=== PATIENT | female | born 1955 | race Caucasian/White ===

== ENCOUNTER → 2017-01-02 | Outpatient (CLI) | payer OTHER ==
--- NOTE | 2017-01-02 13:19 | WOMENS IMAGING REPORT ---
EXAM DESCRIPTION: BILAT SCREENING MAMMO W/CAD COMPLETED DATE/TIME: 01/02/2017 12:59 pm REASON FOR STUDY: Z12.31, ROUTINE SCREENING MAMMO (IMPLANTS) Z12.31 ENCNTR SCREEN MAMMOGRAM FOR MAL IGNANT NEOPLASM OF HUE COMPARISON: November 2015 and September 2014 TECHNIQUE: Standard craniocaudal and mediolateral oblique views of each breast recorded using digita l acquisition. Additional "push-back" craniocaudal and mediolateral oblique images acquired. LIMITATIONS: None. FINDINGS: IMPLANTS: Bilateral subglandular implants are again identified. The previously described bilateral silicone extravasation is again identified and appears unchanged. Findings present which are benign by mammographic criteria. No suspicious masses, calcifications or architectural distortion. Read with the assistance of CAD. .[facility] - R2 Cenova Version 1.3 .[facility] - R2 Cenova Version 1.3 .[facility] - R2 Cenova Version 2.4 .[facility] - R2 Cenova Version 2.4 .[facility] - R2 [employer] Version 9.2 Benign mammographic findings may include one or more of the following: Smooth masses, popcorn/rim/co arse calcifications, asymmetries, post-procedure changes, and lesions with long-standing stability. IMPRESSION: BENIGN MAMMOGRAPHIC FINDINGS. BIRADS 2 BREAST DENSITY: c. The breasts are heterogeneously dense, which may obscure small masses. BIRAD: 2 BENIGN FINDING(S) RECOMMENDATION: ROUTINE SCREENING COMMENT: The patient has been notified of the results by letter per SA requirements. Additional no tification policies are in place for contacting patient with suspicious or incomplete findings. Quality ID #[id number]: The [employer] recommends an annual screening mammogram for women aged 40 years or over. This facility utilizes a reminder system to ensure that all patients receive reminder letters, and/or direct phone calls for appointments. This includes reminders for routine scr eening mammograms, diagnostic mammograms, or other Breast Imaging Interventions when appropriate. Th is patient will be placed in the appropriate reminder system. The [employer] (ACR) has developed recommendations for screening MRI of the breast s in certain patient populations, to be used in conjunction with mammography. Breast MRI surveillanc e may be appropriate for women with more than 20% lifetime risk of developing breast cancer as deter mined by genetic testing, significant family history of the disease, or history of mantle radiation f or Hodgkins Disease. ACR Practice Guidelines 2008. TECHNICAL DOCUMENTATION: FINDING NUMBER: (1) ASSESSMENT: (1) JOB ID: [id number] [employer]- All Rights Reserved
== END ==
LOC: WI 12:36
PROVIDERS: ATTEND Nurse Practitioner
DX: Z12.31 Encounter for screening mammogram for malignant neoplasm of breast (principal)
CPT/HCPCS: 77067; G0202

== ENCOUNTER 2017-01-29 08:59 | Inpatient (IN) | payer OTHER ==
[2017-01-29] MEDS ORDERED: ONDANSETRON HCL INJ/PF 4 MG/2 ML SDV IV ONE (09:28)
[2017-01-29] MEDS ORDERED: NORMAL SALINE 1000 ML 1,000 ML IV ONE (09:40)
[2017-01-29] MEDS ORDERED: KETOROLAC TROMETHAMINE INJ/PF 30 MG/1 ML SDV IV ONE (09:40)
[2017-01-29 10:05] LABS: ABSOLUTE LYMPHOCYTES (AUTO) 0.7 10^3/uL (0.5-4.7); ABSOLUTE MONOCYTES (AUTO) 0.4 10^3/uL (0.1-1.4); ABSOLUTE NEUT (AUTO) 7.3 10^3/uL (1.7-8.2); BASOPHILS % (AUTO) 0.3 % (0-2); HEMATOCRIT 22.3 % (36.0-47.0); HGB HCT DIFFERENCE -0.4; LYMPHOCYTES % (AUTO) 8.7 % (13-45); MEAN CORPUSCULAR HEMOGLOBIN 32.4 pg (27.0-33.4); MEAN CORPUSCULAR HGB CONC 32.8 g/dL (32.0-36.0); MEAN CORPUSCULAR VOLUME 99 fl (80-97); RED BLOOD COUNT 2.26 10^6/uL (3.72-5.28); RED CELL DISTRIBUTION WIDTH 13.6 % (11.5-14.0); WHITE BLOOD COUNT 8.5 10^3/uL (4.0-10.5)
[2017-01-29 10:07] LABS: HEMOGLOBIN 7.3 g/dL (12.0-15.5)
[2017-01-29 10:15] LABS: ALANINE AMINOTRANSFERASE 21 U/L (9-52); ALBUMIN 3.9 g/dL (3.5-5.0); ALKALINE PHOSPHATASE 36 U/L (38-126); ANION GAP 11 (5-19); ASPARTATE AMINO TRANSFERASE 23 U/L (14-36); BILIRUBIN,DIRECT 0.2 mg/dL (0.0-0.4); BILIRUBIN,TOTAL 0.4 mg/dL (0.2-1.3); BLOOD UREA NITROGEN 28 mg/dL (7-20); CALCIUM 8.6 mg/dL (8.4-10.2); CARBON DIOXIDE 23 mmol/L (22-30); CHLORIDE 94 mmol/L (98-107); CREATININE RESULT 0.87 mg/dL (0.52-1.25); GLUCOSE 117 mg/dL (75-110); SODIUM 127.8 mmol/L (137-145); TOTAL PROTEIN 6.2 g/dL (6.3-8.2)
--- NOTE | 2017-01-29 10:47 | RADIOLOGY REPORT (SQ) ---
EXAM DESCRIPTION: ACUTE ABDOMEN SERIES COMPLETED DATE/TIME: 01/29/2017 10:23 am REASON FOR STUDY: abd pain nvd COMPARISON: None. NUMBER OF VIEWS: Three views. TECHNIQUE: Frontal chest, supine abdomen and upright/decubitus abdomen radiographic images acquired. LIMITATIONS: None. FINDINGS: CHEST: Lungs clear of infiltrates. FREE AIR: None. No abnormal gas collections. BOWEL GAS PATTERN: Multiple air filled non distended bowel loops are identified most consistent with an ileus pattern. CALCIFICATIONS: No suspicious calcifications. HARDWARE: None in the abdomen. SOFT TISSUES: No gross mass or suggestion of organomegaly. BONES: No acute fracture. No worrisome bone lesions. OTHER: No other significant finding. IMPRESSION: NO RADIOGRAPHIC EVIDENCE FOR ACUTE ABDOMINAL DISEASE. TECHNICAL DOCUMENTATION: JOB ID: [id number] [email or web address]- All Rights Reserved
[2017-01-29] MEDS ORDERED: PANTOPRAZOLE SODIUM 40 MG VIAL IV ONE (11:36)
[2017-01-29 11:48] LABS: PROTHROMBIN TIME 14.2 SEC (11.4-15.4)
[2017-01-29 11:49] LABS: PARTIAL THROMBOPLASTIN TIME 27.4 SEC (23.5-35.8)
[2017-01-29 11:57] LABS: APPEARANCE,URINE CLEAR; BILIRUBIN,URINE NEGATIVE (NEGATIVE); GLUCOSE, URINE NEGATIVE (NEGATIVE); KETONES,URINE NEGATIVE (NEGATIVE); LEUKOCYTE ESTERASE,URINE NEGATIVE (NEGATIVE); NITRITE,URINE NEGATIVE (NEGATIVE); PROTEIN,URINE NEGATIVE (NEGATIVE); UROBILINOGEN,URINE NEGATIVE mg/dL (<2.0)
[2017-01-29 11:59] LABS: URINE SPECIFIC GRAVITY 1.009
--- NOTE | 2017-01-29 12:08 | ER Document Report ---
ED General - General Chief Complaint: Vomiting Stated Complaint: VOMITING Time Seen by Provider: 01/29/17 09:38 TRAVEL OUTSIDE OF THE [place] IN LAST 30 DAYS: No - HPI Patient complains to provider of: Nausea vomiting diarrhea Notes: Patient coming in complaining of nausea vomiting diarrhea with palpable stool initially now black stools. Patient states she takes multiple BC powders a day. Patient denies any past medical history except for hypertension denies any blood thinning medication. Patient states diffuse abdominal pain no localized symptoms ongoing for a week. Denies any recent travel antibiotics denies any sick contacts - Related Data Allergies/Adverse Reactions: No Known Allergies Allergy (Verified 01/29/17 09:02) Home Medications: Current Home Medications Amlodipine Besylate 5 mg PO DAILY 01/29/17 [History] Citalopram Hydrobromide [Celexa 40 mg Tablet] 40 mg PO DAILY 01/29/17 [History] Lisinopril 40 mg PO DAILY 01/29/17 [History] Past Medical History - Social History Smoking Status: Current Some Day Smoker Chew tobacco use (# tins/day): No Frequency of alcohol use: Occasional Drug Abuse: None Family History: Arthritis, DM, Hyperlipidemia, Hypertension, Malignancy Patient has suicidal ideation: No Patient has homicidal ideation: No - Past Medical History Cardiac Medical History: Reports: Hx Hypertension Renal/ Medical History: Denies: Hx Peritoneal Dialysis Musculoskeltal Medical History: Reports Hx Arthritis, Reports Hx Musculoskeletal Trauma Past Surgical History: Reports: Hx Orthopedic Surgery - neck, Hx Tubal Ligation - Immunizations Hx Diphtheria, Pertussis, Tetanus Vaccination: Yes Review of Systems - Review of Systems Constitutional: No symptoms reported EENT: No symptoms reported Cardiovascular: No symptoms reported Respiratory: No symptoms reported Gastrointestinal: Abdominal pain, Nausea, Vomiting, Black stools Genitourinary: No symptoms reported Female Genitourinary: No symptoms reported Musculoskeletal: No symptoms reported Skin: No symptoms reported Hematologic/Lymphatic: No symptoms reported Neurological/Psychological: No symptoms reported -: Yes All other systems reviewed and negative Physical Exam - Vital signs Vitals: Temp Pulse Resp BP Pulse Ox 97.4 F 87 14 108/63 100 01/29/17 09:02 01/29/17 09:02 01/29/17 09:02 01/29/17 09:02 01/29/17 09:02 Interpretation: Normal - General General appearance: Appears well, Alert - HEENT Head: Normocephalic, Atraumatic Eyes: Normal Pupils: PERRL - Respiratory Respiratory status: No respiratory distress Chest status: Nontender Breath sounds: Normal Chest palpation: Normal - Cardiovascular Rhythm: Regular Heart sounds: Normal auscultation Murmur: No - Abdominal Inspection: Normal Distension: No distension Bowel sounds: Normal Tenderness: Nontender Organomegaly: No organomegaly - Rectal Tenderness: Yes Stool: Heme positive, Bloody Hemorrhoids: External - Back Back: Normal, Nontender - Extremities General upper extremity: Normal inspection, Nontender, Normal color, Normal ROM , Normal temperature General lower extremity: Normal inspection, Nontender, Normal color, Normal ROM , Normal temperature, Normal weight bearing. No: Rodriguez's sign - Neurological Neuro grossly intact: Yes Cognition: Normal Orientation: AAOx4 [place] Coma Scale Eye Opening: Spontaneous [place] Coma Scale Verbal: Oriented Tony Coma Scale Motor: Obeys Commands [place] Coma Scale Total: 15 Speech: Normal Motor strength normal: LUE, RUE, LLE, RLE Sensory: Normal - Psychological Associated symptoms: Normal affect, Normal mood - Skin Skin Temperature: Warm Skin Moisture: Dry Skin Color: Normal Course - Re-evaluation Re-evalutation: 01/29/17 16:09 Patient's hemoglobin returned low patient's Hemoccult was positive lactic acid negative acute abdominal series negative. Discussed with hospitalist will admit the patient for GI bleed. Protonix was ordered for the patient. - Vital Signs Vital signs: Temp Pulse Resp BP Pulse Ox 98 F 97 17 116/66 99 01/29/17 11:52 01/29/17 15:01 01/29/17 11:52 01/29/17 11:52 01/29/17 11:52 - Laboratory Result Diagrams: 01/29/17 09:35 01/29/17 09:35 Laboratory results interpreted by me: 01/29/17 01/29/17 01/29/17 09:35 09:35 11:40 RBC 2.26 L Hgb 7.3 L Hct 22.3 L MCV 99 H Seg Neutrophils % 86.0 H Lymphocytes % 8.7 L Sodium 127.8 L Chloride 94 L BUN 28 H Glucose 117 H Alkaline Phosphatase 36 L Total Protein 6.2 L Urine Blood SMALL H Critical Care Note - Critical Care Note Total time excluding time spent on procedures (mins): 35 Comments: Multiple evaluations for GI bleed Discharge - Discharge Clinical Impression: Nausea vomiting and diarrhea GI bleeding Qualifiers: GI bleed type/associated pathology: melena Qualified Code(s): K92.1 - Melena Condition: Good Disposition: HOME, SELF-CARE Admitting Provider: Hospitalist - [facility] Unit Admitted: Telemetry
[2017-01-29] MEDS ORDERED: ONDANSETRON HCL INJ/PF 4 MG/2 ML SDV IV PRN (12:11)
[2017-01-29] MEDS ORDERED: NORMAL SALINE 1000 ML 1,000 ML IV PRN (12:11)
[2017-01-29] MEDS ORDERED: ACETAMINOPHEN 325 MG TABLET PO PRN (12:11)
--- NOTE | 2017-01-29 13:15 | PDOC H&P ---
History of Present Illness Admission Date/PCP: 01/29/17 12:30 WALE BOLAÑOS MD Patient complains of: Nausea, vomiting and diarrhea for the last 3 days History of Present Illness: Beatrice Oneill is a 61 year old female, with past medical history of hypertension and depression; presents to [facility] emergency room this morning with complaints of nausea, vomiting and diarrhea for the last 3 days. Patient states her symptoms began on the evening of January 27 when she vomited dark brown emesis. She also shortly thereafter, and burgundy colored stool which were liquid. She has had no further vomiting since that time. She does complain of mild epigastric discomfort. She states her diarrhea continued and is now more black in color. She has had no prior history of GI bleeding or peptic ulcer disease. She states she has had EGD which was unremarkable several years ago. She also underwent colonoscopy 6 or 7 years ago and had 2 polyps removed. She has had no change in bowel habits prior to this episode. Patient states she does use frequent BC powder, or headaches and various joint discomforts. Patient denies any excessive alcohol intake. She is a daily smoker. She presently smokes approximately half pack per day. She denies any lightheadedness or dizziness while standing. Past Medical History Cardiac Medical History: Reports: Hypertension Pulmonary Medical History: Reports: None EENT Medical History: Reports: None Neurological Medical History: Reports: None Endocrine Medical History: Reports: None Renal/ Medical History: Reports: None Malignancy Medical History: Reports: None GI Medical History: Reports: None Musculoskeltal Medical History: Reports: Arthritis Skin Medical History: Reports: None Psychiatric Medical History: Reports: Tobacco Dependency Traumatic Medical History: Reports: None Hematology: Reports: None - All Infectious Medical History: Reports: None Past Surgical History Past Surgical History: Reports: Orthopedic Surgery - neck, Tubal Ligation Social History Information Source: Patient Lives with: Spouse/Significant other Smoking Status: Current Some Day Smoker Cigarettes Packs Per Day: 0.5 Number of Years Smokin Last Time Smoked: Today Frequency of Alcohol Use: Occasional Hx Recreational Drug Use: No Hx Prescription Drug Abuse: No - Advance Directive Resuscitation Status: Full Code Family History Family History: Arthritis, DM, Hyperlipidemia, Hypertension, Malignancy Parental Family History Reviewed: Yes Children Family History Reviewed: Yes Sibling(s) Family History Reviewed.: Yes Medication/Allergy Home Medications: Amlodipine Besylate 5 mg PO DAILY 01/29/17 Citalopram Hydrobromide [Celexa 40 mg Tablet] 1 tab PO DAILY 01/29/17 Lisinopril 20 mg PO DAILY 01/29/17 Allergies/Adverse Reactions: No Known Allergies Allergy (Verified 01/29/17 09:02) Review of Systems Constitutional: PRESENT: anorexia, headache(s), weakness Eyes: ABSENT: visual disturbances Ears: ABSENT: hearing changes Cardiovascular: ABSENT: chest pain, dyspnea on exertion, edema, orthropnea, palpitations Gastrointestinal: PRESENT: abdominal pain, diarrhea, melena, other Genitourinary: ABSENT: dysuria, hematuria Musculoskeletal: ABSENT: joint swelling Integumentary: ABSENT: rash, wounds Neurological: ABSENT: abnormal gait, abnormal speech, confusion, dizziness, focal weakness, syncope Hematologic/Lymphatic: ABSENT: easy bleeding, easy bruising Physical Exam Vital Signs: Temp Pulse Resp BP Pulse Ox 98 F 91 17 116/66 99 01/29/17 11:52 01/29/17 11:52 01/29/17 11:52 01/29/17 11:52 01/29/17 11:52 General appearance: PRESENT: no acute distress, thin, well-developed, well- nourished Head exam: PRESENT: atraumatic, normocephalic Eye exam: PRESENT: conjunctiva pale Ear exam: PRESENT: normal external ear exam Mouth exam: PRESENT: moist, neck supple, tongue midline Neck exam: ABSENT: carotid bruit, JVD, lymphadenopathy, thyromegaly Respiratory exam: PRESENT: clear to auscultation devin. ABSENT: rales, rhonchi, wheezes Cardiovascular exam: PRESENT: RRR. ABSENT: diastolic murmur, rubs, systolic murmur Pulses: PRESENT: normal carotid pulses, normal radial pulses Vascular exam: PRESENT: normal capillary refill GI/Abdominal exam: PRESENT: normal bowel sounds, soft. ABSENT: distended, guarding, mass, organolmegaly, rebound, tenderness Rectal exam: PRESENT: black stool, heme (+) stool Extremities exam: PRESENT: full ROM. ABSENT: calf tenderness, clubbing, pedal edema Musculoskeletal exam: PRESENT: ambulatory, full ROM, normal inspection Neurological exam: PRESENT: alert, awake, oriented to person, oriented to place , oriented to time, oriented to situation, CN II-XII grossly intact. ABSENT: motor sensory deficit Psychiatric exam: PRESENT: appropriate affect, normal mood. ABSENT: homicidal ideation, suicidal ideation Skin exam: PRESENT: dry, intact, warm. ABSENT: cyanosis, rash Results Impressions: Acute Abdomen Series 01/29/17 09:40 IMPRESSION: NO RADIOGRAPHIC EVIDENCE FOR ACUTE ABDOMINAL DISEASE. Assessment & Plan - Diagnosis (1) GI bleeding Qualifiers: GI bleed type/associated pathology: melena Qualified Code(s): K92.1 - Melena Is this a current diagnosis for this admission?: YesPlan: NPO. IV Protonix and GI consult. Serial CBCs will be obtained. Transfuse if hgb <7.0 (2) Nausea vomiting and diarrhea Is this a current diagnosis for this admission?: YesPlan: PRN nausea and vomiting (3) Essential hypertension Is this a current diagnosis for this admission?: YesPlan: Continue antihypertensives (4) Depression Qualifiers: Depression Type: unspecified Qualified Code(s): F32.9 - Major depressive disorder, single episode, unspecified Is this a current diagnosis for this admission?: YesPlan: Continue SSRI (5) Tobacco abuse Is this a current diagnosis for this admission?: YesPlan: Counseled. Patient is contemplating quitting. Nicotine prn - Time Time Spent: 50 to 70 Minutes Critical Time spent with patient: 25-34 minutes Medications reviewed and adjusted accordingly: Yes Anticipated discharge: Home with Homehealth Within: within 48 hours
[2017-01-29] MEDS ORDERED: ALPRAZOLAM 0.5 MG TABLET PO PRN (15:59)
[2017-01-29] MEDS ORDERED: NORMAL SALINE 250 ML IV PRN (16:01)
[2017-01-29] MEDS ORDERED: NALOXONE HCL INJ/PF 0.4 MG/1 ML SDV ONE (16:56)
[2017-01-29] MEDS ORDERED: ONDANSETRON HCL INJ/PF 4 MG/2 ML SDV ONE (16:57)
[2017-01-29] MEDS ORDERED: FLUMAZENIL INJ 0.5 MG/5 ML VIAL IV ONE (16:57)
[2017-01-29] MEDS ORDERED: GLUCAGON,HUMAN RECOMB 1 MG INJ ONE (16:57)
[2017-01-29] MEDS ORDERED: EPINEPHRINE INJ 1 MG/10 ML DISP.SYRIN ONE (16:57)
[2017-01-29] MEDS ORDERED: NICOTINE 21 MG/24 HR PATCH.TD24 TD ONE (17:00)
[2017-01-29] MEDS: MIDAZOLAM 2 MG/2 ML INJ ONE ×2 (20:19→20:26)
[2017-01-29] MEDS: FENTANYL CITRATE INJ/PF 100 MCG/2 ML AMPUL ONE ×2 (20:21→20:36)
--- NOTE | 2017-01-29 20:52 | PDOC CONSULTATION ---
Consultation Consult Date: 01/29/17 History of Present Illness Admission Date/PCP: 01/29/17 12:12 WAEL BOLAÑOS MD History of Present Illness: This is a 61-year-old patient who was admitted early on today with vomiting, diarrhea, dizziness and purple looking stools. She had about 4 episodes of this type of stools before admission. She has also been feeling dizzy and lightheaded. She did have some mild epigastric discomfort. She takes BC powder every day and has done this for years. Admission hemoglobin was 7.3. She was told in the past that she was anemic Past Medical History Cardiac Medical History: Reports: Hypertension Pulmonary Medical History: Reports: None EENT Medical History: Reports: None Neurological Medical History: Reports: None Endocrine Medical History: Reports: None Renal/ Medical History: Reports: None Malignancy Medical History: Reports: None GI Medical History: Reports: None Musculoskeltal Medical History: Reports: Arthritis Skin Medical History: Reports: None Psychiatric Medical History: Reports: Depression, Tobacco Dependency Traumatic Medical History: Reports: None Hematology: Reports: None - All Infectious Medical History: Reports: None Past Surgical History Past Surgical History: Reports: Orthopedic Surgery - neck, Tubal Ligation Social History Lives with: Spouse/Significant other Smoking Status: Current Some Day Smoker Cigarettes Packs Per Day: 0.5 Number of Years Smokin Last Time Smoked: Today Frequency of Alcohol Use: Social Hx Recreational Drug Use: No Drugs: None Hx Prescription Drug Abuse: No - Advance Directive Resuscitation Status: Full Code Family History Family History: Arthritis, DM, Hyperlipidemia, Hypertension, Malignancy Parental Family History Reviewed: No Children Family History Reviewed: NA Sibling(s) Family History Reviewed.: NA Medication/Allergy Home Medications: Amlodipine Besylate 5 mg PO DAILY 01/29/17 Citalopram Hydrobromide [Celexa 40 mg Tablet] 40 mg PO DAILY 01/29/17 Lisinopril 40 mg PO DAILY 01/29/17 Allergies/Adverse Reactions: No Known Allergies Allergy (Verified 01/29/17 09:02) Review of Systems All systems: reviewed and no additional remarkable complaints except as stated Physical Exam Vital Signs: Temp Pulse Resp BP Pulse Ox 97.9 F 97 18 151/78 H 97 01/29/17 18:59 01/29/17 20:40 01/29/17 20:40 01/29/17 20:40 01/29/17 20:40 Intake & Output 01/28/17 01/29/17 01/30/17 06:59 06:59 06:59 Intake Total 604 Balance 604 Exam: General: Patient is alert and looks well. HEENT: There is pallor but no jaundice. PERRLA. Oropharynx normal Respiratory: No chest deformity. No respiratory distress. Chest wall palpitation was unremarkable. Breath sounds were normal Cardiovascular: Heart sounds 1 and 2 normal with no murmurs. Abdominal: Not distended. Soft and nontender. Liver and spleen not palpable. No ascites demonstrated. Bowel sounds active. Rectal examination was deferred. Extremities: No edema Neurological: Alert and oriented x4. Grossly nonfocal. Normal speech Skin: No significant rash Psychological: Normal affect Results Laboratory Results: 01/29/17 12:35 Blood Type B POSITIVE Antibody Screen NEGATIVE Impressions: Acute Abdomen Series 01/29/17 09:40 IMPRESSION: NO RADIOGRAPHIC EVIDENCE FOR ACUTE ABDOMINAL DISEASE. Assessment & Plan - Diagnosis (1) GI bleeding Qualifiers: GI bleed type/associated pathology: melena Qualified Code(s): K92.1 - Melena Is this a current diagnosis for this admission?: YesPlan: Her symptoms does suggest GI bleed with a hemoglobin of 7. She was transfused 1 unit of blood. She may have a chronic anemia also. She takes aspirin every day. She will undergo an EGD and if this is unremarkable a colonoscopy (2) GI bleed due to NSAIDs Is this a current diagnosis for this admission?: Yes (3) Tobacco abuse Is this a current diagnosis for this admission?: Yes
[2017-01-29] MEDS ORDERED: NORMAL SALINE 100 ML with PANTOPRAZOLE SODIUM 80 MG IV PRN ×2 (20:55)
--- NOTE | 2017-01-29 20:55 | Operative Report ---
Operative Report DATE OF SURGERY: 01/29/17 Operative Report: Pre-op diagnosis: Anemia and GI bleed Post-op diagnosis: 1. Duodenal ulcer with visible vessel 2. Antral ulcers Surgery: Esophagogastroduodenoscopy with epinephrine injection, cauterization, and biopsy Medications: Versed 4mg Fentanyl 150mcg IV push Tissue removed: Antral biopsy for pathology Procedure: After informed consent obtained from patient, the throat was sprayed with Hurricane and conscious sedation was achieved. The upper endoscope was inserted into the esophagus under direct vision and advanced into the stomach. The duodenum was entered and examined to the second part. Endoscope was then slowly pulled out of the patient as the mucosa was examined into details. Patient tolerated procedure well. Findings Esophagus: Normal Z-line at: 38 cm Antrum: Areas of erythema and 2 small ulcers. Body: Normal Fundus: Normal Duodenum first part: 1 cm ulcer noted with a visible vessel. The base was injected with epinephrine 1 in 10,000 and cauterized. Duodenum second part: Normal Plan: Await pathology. Resume pantoprazole infusion and repeat EGD in 6-8 weeks. Patient was advised to avoid aspirin use OPERATION: .
[2017-01-29] MEDS ORDERED: PANTOPRAZOLE SODIUM 40 MG VIAL IV SCH (22:00)
[2017-01-29] MEDS ORDERED: PANTOPRAZOLE SODIUM 80 MG in NORMAL SALINE 100 ML IV ONE (22:00)
[2017-01-30 06:10] LABS: ANION GAP 6 (5-19); BLOOD UREA NITROGEN 17 mg/dL (7-20); CALCIUM 8.2 mg/dL (8.4-10.2); CARBON DIOXIDE 22 mmol/L (22-30); CHLORIDE 108 mmol/L (98-107); CREATININE RESULT 0.64 mg/dL (0.52-1.25); GLUCOSE 82 mg/dL (75-110); MAGNESIUM 1.8 mg/dL (1.6-2.3); POTASSIUM 4.6 mmol/L (3.6-5.0); SODIUM 135.7 mmol/L (137-145)
[2017-01-30 07:01] LABS: ABSOLUTE LYMPHOCYTES (AUTO) 1.7 10^3/uL (0.5-4.7); ABSOLUTE MONOCYTES (AUTO) 0.4 10^3/uL (0.1-1.4); ABSOLUTE NEUT (AUTO) 4.3 10^3/uL (1.7-8.2); BASOPHILS % (AUTO) 0.3 % (0-2); EOSINOPHILS % (AUTO) 0.2 % (0-6); HEMATOCRIT 20.7 % (36.0-47.0); HGB HCT DIFFERENCE 0.3; LYMPHOCYTES % (AUTO) 26.8 % (13-45); MEAN CORPUSCULAR HEMOGLOBIN 31.9 pg (27.0-33.4); MEAN CORPUSCULAR HGB CONC 33.7 g/dL (32.0-36.0); MONOCYTES % (AUTO) 6.2 % (3-13); RED BLOOD COUNT 2.19 10^6/uL (3.72-5.28); RED CELL DISTRIBUTION WIDTH 15.4 % (11.5-14.0); SEGMENTED NEUTROPHILS % (AUTO) 66.5 % (42-78); WHITE BLOOD COUNT 6.5 10^3/uL (4.0-10.5)
[2017-01-30 07:12] LABS: MEAN CORPUSCULAR VOLUME 95 fl (80-97)
[2017-01-30] MEDS ORDERED: NORMAL SALINE 250 ML IV PRN ×2 (07:37)
[2017-01-30] MEDS ORDERED: NICOTINE 21 MG/24 HR PATCH.TD24 TD SCH (10:00)
--- NOTE | 2017-01-30 16:15 | PDOC PROGRESS REPORT ---
Subjective Progress Note for:: 01/30/17 Subjective:: The patient is seen on morning rounds. She is sitting in bedside chair. She was found to have active bleeding gastric ulcer She underwent EGD last evening by Dr. Ford., 2 smaller healed ulcers. The active ulcer was injected she has had no further bleeding since that time. She denies any melena overnight. Hemoglobin was found to be 7 (she was transfused 1 unit packed red blood cells last night), she has 2 more units ordered at the present time. She denies any shortness of breath, chest pain or dyspnea. She denies any nausea, abdominal pain or diarrhea. She denies any further melena. She denies any significant joint pain. Physical Exam Vital Signs: Temp Pulse Resp BP Pulse Ox 98.1 F 93 16 125/70 96 01/30/17 15:05 01/30/17 15:05 01/30/17 15:05 01/30/17 15:05 01/30/17 15:05 Intake & Output 01/29/17 01/30/17 01/31/17 06:59 06:59 06:59 Intake Total 2329 0 Balance 2329 0 Weight 44.8 kg General appearance: PRESENT: no acute distress, thin, well-developed Head exam: PRESENT: atraumatic, normocephalic Eye exam: PRESENT: conjunctiva pale, EOMI, PERRLA. ABSENT: scleral icterus Ear exam: PRESENT: normal external ear exam Mouth exam: PRESENT: moist, tongue midline Neck exam: ABSENT: carotid bruit, JVD, lymphadenopathy, thyromegaly Respiratory exam: PRESENT: clear to auscultation devin. ABSENT: rales, rhonchi, wheezes Cardiovascular exam: PRESENT: RRR. ABSENT: diastolic murmur, rubs, systolic murmur Pulses: PRESENT: normal dorsalis pedis pul Vascular exam: PRESENT: normal capillary refill GI/Abdominal exam: PRESENT: normal bowel sounds, soft. ABSENT: distended, guarding, mass, organolmegaly, rebound, tenderness Rectal exam: PRESENT: deferred Extremities exam: PRESENT: full ROM. ABSENT: calf tenderness, clubbing, pedal edema Neurological exam: PRESENT: alert, awake, oriented to person, oriented to place , oriented to time, oriented to situation, CN II-XII grossly intact. ABSENT: motor sensory deficit Psychiatric exam: PRESENT: appropriate affect, normal mood. ABSENT: homicidal ideation, suicidal ideation Skin exam: PRESENT: dry, intact, warm. ABSENT: cyanosis, rash Results Laboratory Results: 01/30/17 04:40 01/30/17 04:40 01/29/17 01/30/17 01/30/17 12:35 04:40 04:40 WBC 6.5 RBC 2.19 L Hgb 7.0 L Hct 20.7 L MCV 95 D MCH 31.9 MCHC 33.7 RDW 15.4 H Plt Count 195 Seg Neutrophils % 66.5 Lymphocytes % 26.8 Monocytes % 6.2 Eosinophils % 0.2 Basophils % 0.3 Absolute Neutrophils 4.3 Absolute Lymphocytes 1.7 Absolute Monocytes 0.4 Absolute Eosinophils 0.0 Absolute Basophils 0.0 Sodium 135.7 L Potassium 4.6 Chloride 108 H Carbon Dioxide 22 Anion Gap 6 BUN 17 Creatinine 0.64 Est GFR ( Amer) > 60 Est GFR (Non-Af Amer) > 60 Glucose 82 Calcium 8.2 L Magnesium 1.8 Blood Type B POSITIVE Antibody Screen NEGATIVE Impressions: Acute Abdomen Series 01/29/17 09:40 IMPRESSION: NO RADIOGRAPHIC EVIDENCE FOR ACUTE ABDOMINAL DISEASE. Assessment & Plan - Diagnosis (1) Hyponatremia Is this a current diagnosis for this admission?: Yes (2) GI bleeding Qualifiers: GI bleed type/associated pathology: melena Qualified Code(s): K92.1 - Melena Is this a current diagnosis for this admission?: YesPlan: patient underwent EGD last evening by Dr. Ford. She was found to have 1 active gastric ulcer which was injected. She has had no further bleeding since that time. Discussed with patient most likely due to her overuse of BC powder. We also discussed the possibility of H pylori infection. Patient understands she needs to not use any aspirin products for several months. We will transfuse her 2 units packed cells morning. We will start her on clear liquid diet advance as tolerated (3) Nausea vomiting and diarrhea Is this a current diagnosis for this admission?: YesPlan: PRN nausea and vomiting (4) Essential hypertension Is this a current diagnosis for this admission?: YesPlan: Continue antihypertensives (5) Depression Qualifiers: Depression Type: unspecified Qualified Code(s): F32.9 - Major depressive disorder, single episode, unspecified Is this a current diagnosis for this admission?: YesPlan: Continue SSRI (6) Tobacco abuse Is this a current diagnosis for this admission?: YesPlan: Counseled. Patient is contemplating quitting. Nicotine prn - Time Time Spent with patient: 25-34 minutes Critical Time spent with patient: 15-24 minutes Medications reviewed and adjusted accordingly: Yes Anticipated discharge: Home - Inpatient Certification Based on my medical assessment, after consideration of the patient's comorbidities, presenting symptoms, or acuity I expect that the services needed warrant INPATIENT care.: Yes I certify that my determination is in accordance with my understanding of Medicare's requirements for reasonable and necessary INPATIENT services [42 CFR 412.3e].: Yes
[2017-01-30 18:10] LABS: ABSOLUTE BASOPHILS # (AUTO) 0.1 10^3/uL (0.0-0.2); ABSOLUTE MONOCYTES (AUTO) 0.6 10^3/uL (0.1-1.4); ABSOLUTE NEUT (AUTO) 4.7 10^3/uL (1.7-8.2); BASOPHILS % (AUTO) 0.8 % (0-2); EOSINOPHILS % (AUTO) 0.5 % (0-6); HEMATOCRIT 28.8 % (36.0-47.0); LYMPHOCYTES % (AUTO) 27.1 % (13-45); MEAN CORPUSCULAR HEMOGLOBIN 30.8 pg (27.0-33.4); MEAN CORPUSCULAR HGB CONC 33.4 g/dL (32.0-36.0); MEAN CORPUSCULAR VOLUME 92 fl (80-97); MONOCYTES % (AUTO) 8.3 % (3-13); RED BLOOD COUNT 3.12 10^6/uL (3.72-5.28); RED CELL DISTRIBUTION WIDTH 16.1 % (11.5-14.0); SEGMENTED NEUTROPHILS % (AUTO) 63.3 % (42-78); WHITE BLOOD COUNT 7.5 10^3/uL (4.0-10.5)
[2017-01-30 18:16] LABS: HEMOGLOBIN 9.6 g/dL (12.0-15.5)
[2017-01-30 23:15] LABS: HEMATOCRIT 31.5 % (36.0-47.0); HEMOGLOBIN 10.4 g/dL (12.0-15.5); HGB HCT DIFFERENCE -0.3; MEAN CORPUSCULAR HEMOGLOBIN 30.1 pg (27.0-33.4); MEAN CORPUSCULAR HGB CONC 33.1 g/dL (32.0-36.0); MEAN CORPUSCULAR VOLUME 91 fl (80-97); RED BLOOD COUNT 3.46 10^6/uL (3.72-5.28); RED CELL DISTRIBUTION WIDTH 16.4 % (11.5-14.0); WHITE BLOOD COUNT 6.5 10^3/uL (4.0-10.5)
[2017-01-31 06:57] LABS: ABSOLUTE BASOPHILS # (AUTO) 0.1 10^3/uL (0.0-0.2); ABSOLUTE EOSINOPHILS # (AUTO) 0.1 10^3/uL (0.0-0.6); ABSOLUTE LYMPHOCYTES (AUTO) 1.3 10^3/uL (0.5-4.7); ABSOLUTE MONOCYTES (AUTO) 0.5 10^3/uL (0.1-1.4); ABSOLUTE NEUT (AUTO) 4.2 10^3/uL (1.7-8.2); EOSINOPHILS % (AUTO) 1.4 % (0-6); HEMATOCRIT 33.4 % (36.0-47.0); HGB HCT DIFFERENCE -0.4; LYMPHOCYTES % (AUTO) 21.8 % (13-45); MEAN CORPUSCULAR HEMOGLOBIN 30.1 pg (27.0-33.4); MEAN CORPUSCULAR HGB CONC 32.9 g/dL (32.0-36.0); MEAN CORPUSCULAR VOLUME 92 fl (80-97); RED BLOOD COUNT 3.65 10^6/uL (3.72-5.28); SEGMENTED NEUTROPHILS % (AUTO) 67.8 % (42-78); WHITE BLOOD COUNT 6.2 10^3/uL (4.0-10.5)
[2017-01-31 08:04] VITALS: BP 136/91
[2017-01-31] MEDS ORDERED: LANSOPRAZOLE 30 MG TAB.RAP.DR PO ONE (08:56)
--- NOTE | 2017-01-31 15:21 | PDOC DISCHARGE SUMMARY ---
General - Admit/Disc Date/PCP Admission Date/Primary Care Provider: 01/29/17 12:12 WALE BOLAÑOS MD Discharge Date: 01/31/17 - Discharge Diagnosis (1) GI bleeding Is this a current diagnosis for this admission?: YesSummary: No further bleeding since EGD and bleeding gastric ulcer was injected Will d/c IV protonix and place on oral. She has been transfused a total of 3 units of PRBCs. She will avoid aspiring products and NSAIDS (2) Hyponatremia Is this a current diagnosis for this admission?: YesSummary: Resolving secondary to volume depletion (3) Nausea vomiting and diarrhea Is this a current diagnosis for this admission?: YesSummary: Resolved (4) Essential hypertension Is this a current diagnosis for this admission?: YesSummary: Continue current medications. She is normotensive (5) Depression Is this a current diagnosis for this admission?: YesSummary: Continue SSRI (6) Tobacco abuse Is this a current diagnosis for this admission?: YesSummary: Counseled. She states she does not intend on quitting at this time - Additional Information Resuscitation Status: Full Code Discharge Diet: Regular Discharge Activity: Activity As Tolerated, Balance Activity w/Rest Home Medications: Amlodipine Besylate 5 mg PO DAILY 01/29/17 Citalopram Hydrobromide [Celexa 40 mg Tablet] 40 mg PO DAILY 01/29/17 Lisinopril 40 mg PO DAILY 01/29/17 Dexlansoprazole [Dexilant 60 mg Capsule] 60 mg PO DAILY #30 01/31/17 History of Present Illness Patient complains of: Nausea, vomiting, diarrhea and melena History of Present Illness: Beatrice Oneill is a 61 year old female, with past medical history of hypertension and depression; presents to [facility] emergency room this morning with complaints of nausea, vomiting and diarrhea for the last 3 days. Patient states her symptoms began on the evening of January 27 when she vomited dark brown emesis. She also shortly thereafter, and burgundy colored stool which were liquid. She has had no further vomiting since that time. She does complain of mild epigastric discomfort. She states her diarrhea continued and is now more black in color. She has had no prior history of GI bleeding or peptic ulcer disease. She states she has had EGD which was unremarkable several years ago. She also underwent colonoscopy 6 or 7 years ago and had 2 polyps removed. She has had no change in bowel habits prior to this episode. Patient states she does use frequent BC powder, or headaches and various joint discomforts. Patient denies any excessive alcohol intake. She is a daily smoker. She presently smokes approximately half pack per day. She denies any lightheadedness or dizziness while standing. Hospital Course Hospital Course: Patient was admitted to telemetry on IV Protonix infusion. Dr Ford, gastroenterology was consulted. He took the patient for EGD later that evening and found actively bleeding gastric ulcer which he injected and 2 healing ulcers. Biopsies were taken for H Pylori. She has had no further bleeding since EGD. She was transfused one unit of PRBC prior to EGD with a hemoglobin of 7.3. The following morning her hemoglobin was 7.0 she was given 2 more units of PRBCs. She was started on clear liquid diet and progressed. She has had no further melena. She tolerated a regular diet today. Her hemoglobin is 11. She will follow up with Dr Ford in the office Physical Exam Vital Signs: Temp Pulse Resp BP Pulse Ox 98.3 F 84 16 136/91 H 100 01/31/17 09:52 01/31/17 09:52 01/31/17 09:52 01/31/17 09:52 01/31/17 09:52 Intake & Output 01/30/17 01/31/17 02/01/17 06:59 06:59 06:59 Intake Total 2329 3895 Balance 2329 3895 Weight 44.8 kg 44 kg General appearance: PRESENT: no acute distress, thin, well-developed Head exam: PRESENT: atraumatic, normocephalic Eye exam: PRESENT: conjunctiva pink, EOMI, PERRLA. ABSENT: scleral icterus Ear exam: PRESENT: normal external ear exam Mouth exam: PRESENT: moist, tongue midline Neck exam: ABSENT: carotid bruit, JVD, lymphadenopathy, thyromegaly Respiratory exam: PRESENT: clear to auscultation devin. ABSENT: rales, rhonchi, wheezes Cardiovascular exam: PRESENT: RRR. ABSENT: diastolic murmur, rubs, systolic murmur Pulses: PRESENT: normal dorsalis pedis pul Vascular exam: PRESENT: normal capillary refill GI/Abdominal exam: PRESENT: normal bowel sounds, soft. ABSENT: distended, guarding, mass, organolmegaly, rebound, tenderness Rectal exam: PRESENT: deferred Extremities exam: PRESENT: full ROM. ABSENT: calf tenderness, clubbing, pedal edema Neurological exam: PRESENT: alert, awake, oriented to person, oriented to place , oriented to time, oriented to situation, CN II-XII grossly intact. ABSENT: motor sensory deficit Psychiatric exam: PRESENT: appropriate affect, normal mood. ABSENT: homicidal ideation, suicidal ideation Skin exam: PRESENT: dry, intact, warm. ABSENT: cyanosis, rash Results Laboratory Results: 01/31/17 06:27 01/30/17 04:40 01/29/17 01/30/17 01/30/17 12:35 17:48 23:07 WBC 7.5 6.5 RBC 3.12 L 3.46 L Hgb 9.6 L D 10.4 L Hct 28.8 L 31.5 L MCV 92 91 MCH 30.8 30.1 MCHC 33.4 33.1 RDW 16.1 H 16.4 H Plt Count 229 189 Seg Neutrophils % 63.3 Lymphocytes % 27.1 Monocytes % 8.3 Eosinophils % 0.5 Basophils % 0.8 Absolute Neutrophils 4.7 Absolute Lymphocytes 2.0 Absolute Monocytes 0.6 Absolute Eosinophils 0.0 Absolute Basophils 0.1 Blood Type B POSITIVE Antibody Screen NEGATIVE 01/31/17 06:27 WBC 6.2 RBC 3.65 L Hgb 11.0 L Hct 33.4 L MCV 92 MCH 30.1 MCHC 32.9 RDW 16.0 H Plt Count 215 Seg Neutrophils % 67.8 Lymphocytes % 21.8 Monocytes % 8.0 Eosinophils % 1.4 Basophils % 1.0 Absolute Neutrophils 4.2 Absolute Lymphocytes 1.3 Absolute Monocytes 0.5 Absolute Eosinophils 0.1 Absolute Basophils 0.1 Blood Type Antibody Screen Impressions: Acute Abdomen Series 01/29/17 09:40 IMPRESSION: NO RADIOGRAPHIC EVIDENCE FOR ACUTE ABDOMINAL DISEASE. Qualifiers PATEINT BEING DISCHARGED WITH ANY OF THE FOLLOWING DIAGNOSIS?: No Plan Discharge Plan: Home with family Time Spent: Less than 30 Minutes
== END 2017-01-31 10:28 | disposition home or self-care (01) | DRG 378 ==
LOC: ER 08:59 → EH 12:12 → UNDOADMIN 12:30 → 5 14:41
PROVIDERS: ADMIT Family Medicine; ATTEND Family Medicine
PROC: 0DB78ZX Excision of Stomach, Pylorus, Via Natural or Artificial Opening Endoscopic, Diagnostic (ICD-10-PCS; principal; 2017-01-29 18:30)
PROC: 0W3P8ZZ Control Bleeding in Gastrointestinal Tract, Via Natural or Artificial Opening Endoscopic (ICD-10-PCS; 2017-01-29 18:30)
PROC: 30233N1 Transfusion of Nonautologous Red Blood Cells into Peripheral Vein, Percutaneous Approach (ICD-10-PCS; 2017-01-29 18:30)
DX: K26.4 Chronic or unspecified duodenal ulcer with hemorrhage (principal); E87.1 Hypo-osmolality and hyponatremia; K25.9 Gastric ulcer, unspecified as acute or chronic, without hemorrhage or perforation; K92.1 Melena; R11.2 Nausea with vomiting, unspecified; R19.7 Diarrhea, unspecified; I10 Essential (primary) hypertension; F32.9 Major depressive disorder, single episode, unspecified; F17.210 Nicotine dependence, cigarettes, uncomplicated; Z79.1 Long term (current) use of non-steroidal anti-inflammatories (NSAID)
CPT/HCPCS: 36415; 36430; 43236; 43239; 43255; 74022; 80048; 80053; 81001; 82272; 83605; 83690; 83735; 85025; 85027; 85610; 85730; 86850; 86900; 86901; 86920; 88305; 88342; 96361; 96374; 96375; 99291; J0171; J1610; J1885; J2250; J2310; J2405; J3010; J3490; J7030; P9016; S0164

== ENCOUNTER → 2018-04-05 | Outpatient (CLI) | payer OTHER ==
--- NOTE | 2018-04-05 14:27 | WOMENS IMAGING REPORT ---
EXAM DESCRIPTION: BILAT SCREENING MAMMO W/CAD COMPLETED DATE/TIME: 04/05/2018 1:46 pm REASON FOR STUDY: BILATERAL SCREENING MAMMO/Z12.31 Z12.31 ENCNTR SCREEN MAMMOGRAM FOR MALIGNANT CHRISTOPHER PLASM OF HUE COMPARISON: Multiple since 2008 TECHNIQUE: Standard craniocaudal and mediolateral oblique views of each breast recorded using digita l acquisition. Additional "push-back" craniocaudal and mediolateral oblique images acquired. LIMITATIONS: None. FINDINGS: IMPLANTS: Bilateral subglandular implants. Extravasated silicone is present bilaterally, surrounding densely calcified implants Findings present which are benign by mammographic criteria. No suspicious masses, calcifications or architectural distortion. Read with the assistance of CAD. .[facility] - R2 Cenova Version 1.3 .[facility] Imaging - R2 Cenova Version 1.3 .[facility] - R2 Cenova Version 2.4 .[facility] [place] Cenova Version 2.4 .[facility] - R2 Dust Mop Maker Version 9.2 Benign mammographic findings may include one or more of the following: Smooth masses, popcorn/rim/co arse calcifications, asymmetries, post-procedure changes, and lesions with long-standing stability. IMPRESSION: BENIGN MAMMOGRAPHIC FINDINGS. BIRADS 2 BREAST DENSITY: d. The breasts are extremely dense, which lowers the sensitivity of mammography. BIRAD: 2 BENIGN FINDING(S) RECOMMENDATION: ROUTINE SCREENING Please continue yearly bilateral screening mammography in March 2019 COMMENT: The patient has been notified of the results by letter per [place] requirements. Additional no tification policies are in place for contacting patient with suspicious or incomplete findings. Quality ID #[id number]: The [employer] recommends an annual screening mammogram for women aged 40 years or over. This facility utilizes a reminder system to ensure that all patients receive reminder letters, and/or direct phone calls for appointments. This includes reminders for routine scr eening mammograms, diagnostic mammograms, or other Breast Imaging Interventions when appropriate. Th is patient will be placed in the appropriate reminder system. The [employer] ([employer]) has developed recommendations for screening MRI of the breast s in certain patient populations, to be used in conjunction with mammography. Breast MRI surveillanc e may be appropriate for women with more than 20% lifetime risk of developing breast cancer as deter mined by genetic testing, significant family history of the disease, or history of mantle radiation f or Hodgkins Disease. ACR Practice Guidelines 2008. TECHNICAL DOCUMENTATION: FINDING NUMBER: (1) ASSESSMENT: (1) JOB ID: [id number] [employer]- All Rights Reserved Reading location - IP/workstation name: [email or web address]
== END ==
LOC: WI 13:20
PROVIDERS: ATTEND Nurse Practitioner
DX: Z12.31 Encounter for screening mammogram for malignant neoplasm of breast (principal)
CPT/HCPCS: 77067